=== PATIENT | male | born 1955 | race Caucasian/White ===

== ENCOUNTER 2019-05-31 22:52 | Emergency (ER) | payer OTHER ==
[~2019-05-31] VITALS: Ht 170.2 cm; Wt 78.0 kg
[2019-05-31 23:30] VITALS: BP_SYST 132
--- NOTE | 2019-06-01 02:55 | NUR ---
Pt ambulatory to bed 3 for evaluation
--- NOTE | 2019-06-01 03:00 | NUR ---
ER at bedside examining patient.
--- NOTE | 2019-06-01 03:10 | NUR ---
GAUGE 18 IV LINE ESTABLISHED TO THE RIGHT AC. BLOOD ALSO DRAWN AND SENT TO THE LAB.
--- NOTE | 2019-06-01 03:18 | NUR ---
RECTAL EXAMINATION DONE BY ER-MD ASSISTED BY RN. FECAL OCCULT BLOOD DONE AND IS NEGATIVE PER .
[2019-06-01 03:32] LABS: BASOPHILS % (AUTO) 0.8 % (0.0-2.0); EOSINOPHILS # (AUTO) 0.1 K/uL (0.0-0.4); EOSINOPHILS % (AUTO) 2.1 % (0.0-4.0); HEMOGLOBIN 14.9 g/dL (14.0-18.0); LYMPHOCYTES # (AUTO) 1.7 K/uL (1.0-5.5); LYMPHOCYTES % (AUTO) 33.1 % (20.5-51.5); MEAN CORPUSCULAR HEMOGLOBIN 32 pg (27-31); MEAN CORPUSCULAR HGB CONC 34 % (32-36); MEAN CORPUSCULAR VOLUME 94 fL (79.0-98.0); MONOCYTES # (AUTO) 0.5 K/uL (0.0-1.0); MONOCYTES % (AUTO) 10.1 % (1.7-9.3); NEUTROPHILS # (AUTO) 2.8 K/uL (1.8-7.7); NEUTROPHILS % (AUTO) 53.9 % (40.0-70.0); PLATELET COUNT (AUTO) 185 K/uL (130-430); RED BLOOD CELL COUNT(AUTO) 4.67 MIL/uL (4.2-6.2); RED CELL DISTRIBUTION WIDTH 13.1 % (9.0-15.0); WHITE BLOOD COUNT (AUTO) 5.2 K/uL (4.8-10.8)
[2019-06-01 03:39] LABS: CALCIUM 8.1 mg/dL (8.4-11.0); CREATININE 0.92 mg/dL (0.55-1.30); POTASSIUM 3.7 mmol/L (3.5-5.1)
[2019-06-01 03:45] LABS: ALBUMIN 3.7 g/dL (3.4-4.8); TOTAL BILIRUBIN 0.3 mg/dL (0.0-1.0)
--- NOTE | 2019-06-01 04:51 | NUR ---
DISCHARGED STABLE AND NOT IN ANY KIND OF DISTRESS. VERBAL AND WRITTEN AFTERCARE INSTRUCTIONS GIVEN. VERBALIZED UNDERSTANDING. LEFT AMBULATORY WITH STABLE GAIT.
[2019-06-01 04:56] VITALS: BP_SYST 129
== END 2019-06-01 04:56 | disposition home or self-care (01) ==
LOC: SED 22:52
DX: K62.5 Hemorrhage of anus and rectum (principal)
CPT/HCPCS: 36415; 80053; 83690-TC; 85025; 99283